=== PATIENT | male | born 1995 | race Caucasian/White ===

== ENCOUNTER 2024-04-28 11:55 | Observation (INO) | payer BC ==
[2024-04-28] MEDS ORDERED: DUONEB 0.5-3 MG/3 ml Neb IH ONE (12:22)
--- NOTE | 2024-04-28 12:24 | ERPHSYRPT ---
- History of Present Illness Time Seen by Provider: 04/28/24 12:10 Source: patient Exam Limitations: no limitations Patient Subjective Stated Complaint: Nurse practitioner stated "He came in for a cough for two days, we tested him and he was positive for flu a. His lungs sound junky and I cannot get his sats up past 90 so we put him on oxygen.". Pt stated "I have been coughing for the past two days and it seems to not be getting better." Triage Nursing Assessment: Pt presented alert and oriented X 3, skin pwd. Pt ambulates with an upright steady giat, able to speak in clear ufll sentences. PT tachypneic and coughing. Physician History: 28-year-old male presents to our ED from [facility] for evaluation of hypoxia. Patient reports he has been coughing for 2 to 3 days. Patient tested positive for the flu at [facility]. Patient was observed to be hypoxic into the low 90s. Patient was advised to come to our ED for further evaluation. Patient denies a history of pneumonia. He reports he is otherwise healthy. No history of PE DVT. No cardiac history per patient. Patient symptoms have been progressive over the past 2 days. No obvious sick contacts. Patient denies fever. Patient symptoms are moderate in intensity. Symptoms are worse with exertion. Symptoms improved with rest. Patient otherwise feels well. Patient voices no other complaints or concerns at this time. Portions of this note were created with voice recognition technology. There may be grammatical, spelling, punctuation or sound alike errors Timing/Duration: day(s) (3 days) Severity: moderate Modifying Factors: Improves With: nothing Associated Symptoms: denies symptoms Allergies/Adverse Reactions: latex Allergy (Intermediate, Verified 04/28/24 12:06) Rash amphetamine [From Adderall] Adverse Reaction (Unknown, Verified 04/28/24 12:06) unknown dextroamphetamine [From Adderall] Adverse Reaction (Unknown, Verified 04/28/24 12:06) unknown Home Medications: No Reportable Medications [No Reported Medications] 04/28/24 [History] Hx Tetanus, Diphtheria Vaccination/Date Given: No Hx Influenza Vaccination/Date Given: No Hx Pneumococcal Vaccination/Date Given: No Immunizations Up to Date: No Travel Risk - International Travel Have you traveled outside of the country in past 3 weeks: No - Emerging Infectious Disease Are you exhibiting symptoms associated with any current EIDs: Yes Symptoms: Cough: New Onset, Shortness of Breath - Review of Systems Constitutional: No Symptoms, No Fever, No Chills Eyes: No Symptoms Ears, Nose, & Throat: No Symptoms Respiratory: No Symptoms, No Cough, No Dyspnea Cardiac: No Symptoms, No Chest Pain, No Edema, No Syncope Abdominal/Gastrointestinal: No Symptoms, No Abdominal Pain, No Nausea, No Vomiting, No Diarrhea Genitourinary Symptoms: No Symptoms, No Dysuria Musculoskeletal: No Symptoms, No Back Pain, No Neck Pain Skin: No Symptoms, No Rash Neurological: No Symptoms, No Dizziness, No Focal Weakness, No Sensory Changes Psychological: No Symptoms Endocrine: No Symptoms Hematologic/Lymphatic: No Symptoms Immunological/Allergic: No Symptoms All Other Systems: Reviewed and Negative - Past Medical History Pertinent Past Medical History: No - Past Surgical History Past Surgical History: Yes Other Surgical History: left leg - Social History Smoking Status: Never smoker Exposure to second hand smoke: No Drug Use: none - Social Determinants of Health Will the patient participate in the screening: Declined to provide - Nursing Vital Signs Nursing Vital Signs: Initial Vital Signs Temperature 98.5 F 04/28/24 12:00 Pulse Rate 113 H 04/28/24 12:00 Respiratory Rate 26 H 04/28/24 12:00 Blood Pressure 134/91 04/28/24 12:00 O2 Sat by Pulse Oximetry 95 04/28/24 12:00 Pain Scale Pain Intensity 0 - Physical Exam General Appearance: no apparent distress, alert Eye Exam: PERRL/EOMI, eyes nml inspection Ears, Nose, Throat Exam: normal ENT inspection, moist mucous membranes Neck Exam: normal inspection, full range of motion Respiratory Exam: airway intact, diminished breath sounds, rhonchi, wheezing, No respiratory distress Cardiovascular Exam: regular rate/rhythm, normal heart sounds, normal peripheral pulses Gastrointestinal/Abdomen Exam: soft, normal bowel sounds, No tenderness, No mass Back Exam: normal inspection, normal range of motion, No CVA tenderness, No vertebral tenderness Extremity Exam: normal inspection, normal range of motion, pelvis stable Neurologic Exam: alert, oriented x 3, cooperative, normal mood/affect, sensation nml, No motor deficits Skin Exam: normal color, warm, dry, No rash Lymphatic Exam: No adenopathy SpO2 Interpretation: normal SpO2: 94 O2 Delivery: Room Air - Course Nursing assessment & vital signs reviewed: Yes EKG Interpreted by Me: RATE ([id number]), Sinus Tach, NORMAL AXIS, NORMAL INTERVALS, NORMAL QRS - CT Exams Chest CT Interpretation: Tele-radiologist Report (No identifiable PE. Fatty liver) Ordered Tests: Active Orders 24 hr Category Date Time Status Analysis Specialist STAT Care 04/28/24 12:18 Active EKG-ER Only STAT Care 04/28/24 12:17 Active IV Insertion STAT Care 04/28/24 12:17 Active Pulse Oximetry (ED) STAT Care 04/28/24 12:17 Active CHEST WITH CONTRAST [CT] Stat Exams 04/28/24 13:23 Completed BLOOD CULTURE Stat Lab 04/28/24 12:49 Received CBC W DIFF Stat Lab 04/28/24 12:39 Completed CMP Stat Lab 04/28/24 12:39 Completed D-DIMER QUANTITATIVE Stat Lab 04/28/24 12:39 Completed NT PRO BNPII Stat Lab 04/28/24 12:39 Completed TROPONIN Q4H Lab 04/28/24 12:39 Completed Respiratory Therapy Assessment DAILY RT 04/28/24 12:29 Active Transfer Order Routine Transfer 04/28/24 Ordered Medication Summary Discontinued Medications Generic Name Dose Route Start Last Admin Trade Name Freq PRN Reason Stop Dose Admin Albuterol/Ipratropium 3 ml 04/28/24 12:18 04/28/24 12:25 Ipratropium/Albuterol Sulfate 3 Ml Ampul.Neb IH 04/28/24 12:19 3 ml STAT ONE Administration Albuterol/Ipratropium Confirm 04/28/24 12:22 Ipratropium/Albuterol Sulfate 3 Ml Ampul.Neb Administered 04/28/24 12:23 Dose 3 ml IH .STK-MED ONE Methylprednisolone Sodium 0 mg 04/28/24 12:18 04/28/24 15:38 Succinate 125 mg/ Sterile IV 04/28/24 12:19 125 mg Water 2 ml STAT ONE Administration Sodium Chloride 1,000 mls @ 999 mls/hr 04/28/24 12:24 04/28/24 16:41 Sodium Chloride 0.9% 1000 Ml IV 04/28/24 13:24 Infused .Q1H1M STA Infusion Sodium Chloride Confirm 04/28/24 15:32 Sodium Chloride 0.9% 1000 Ml Administered 04/28/24 15:33 Dose 1,000 mls @ ud .ROUTE .STK-MED ONE Methylprednisolone Sodium Succinate Confirm 04/28/24 15:32 Methylprednis Sod Succ 125 Mg/2 Ml Vial Administered 04/28/24 15:33 Dose 125 mg .ROUTE .STK-MED ONE Oseltamivir Phosphate 75 mg 04/28/24 18:15 Oseltamivir 75 Mg Cap PO 04/28/24 18:16 STAT ONE Sterile Water Confirm 04/28/24 15:32 Water For Injection,Sterile 10 Ml Vial Administered 04/28/24 15:33 Dose 10 ml IJ .STK-MED ONE Lab/Rad Data: Laboratory Result Diagrams 04/28/24 12:39 04/28/24 12:39 Laboratory Results 04/28/24 04/28/24 04/28/24 Range/Units 12:39 12:39 12:39 WBC (4.23-9.07) x10^3/uL RBC (4.63-6.08) x10^6/uL Hgb (13.7-17.5) g/dL Hct (40.1-51.0) % MCV (79.0-92.2) fL MCH (25.7-32.2) pg MCHC (32.3-36.5) g/dL RDW (11.6-14.4) % Plt Count (163-337) x10^3/uL MPV (9.4-12.4) fL Gran % (34.0-67.9) % Immature Gran % (Auto) (0.001-0.429) % Nucleat RBC Rel Count (0.00-0.2) % Eos # (Auto) (0.04-0.54) x10^3/uL Immature Gran # (Auto) (0.001-0.031) x10^3u/L Absolute Lymphs (auto) (1.32-3.57) x10^3/uL Absolute Monos (auto) (0.30-0.82) x10^3/uL Absolute Nucleated RBC (0.00-0.012) x10^3u/L Lymphocytes % (21.8-53.1) % Monocytes % (5.3-12.2) % Eosinophils % (0.8-7.0) % Basophils % (0.2-1.2) % Absolute Granulocytes (1.78-5.38) x10^3/uL Basophils # (0.01-0.08) x10^3/uL D-Dimer 0.60 H (0.0-0.50) mg/L Sodium 135 (135-145) mmol/L Potassium 3.8 (3.5-5.1) mmol/L Chloride 100 (98-107) mmol/L Carbon Dioxide 25 (22-30) mmol/L Anion Gap 12.9 (5-15) MEQ/L BUN 21 H (9-20) mg/dL Creatinine 1.07 (0.66-1.25) mg/dL Estimated GFR 95.7 ML/MIN Glucose 114 H (74-106) mg/dL Calcium 8.9 (8.4-10.2) mg/dL Total Bilirubin 0.80 (0.2-1.3) mg/dL AST 45 (17-59) U/L ALT 45 (0-50) U/L Alkaline Phosphatase 66 (38-126) U/L Troponin I < 0.012 (0.000-0.033) ng/mL NT-Pro-B Natriuret Pep 50.3 (<300) pg/mL Serum Total Protein 7.3 (6.3-8.2) g/dL Albumin 4.6 (3.5-5.0) g/dL 04/28/24 Range/Units 12:39 WBC 6.6 (4.23-9.07) x10^3/uL RBC 5.31 (4.63-6.08) x10^6/uL Hgb 16.0 (13.7-17.5) g/dL Hct 47.1 (40.1-51.0) % MCV 88.7 (79.0-92.2) fL MCH 30.1 (25.7-32.2) pg MCHC 34.0 (32.3-36.5) g/dL RDW 13.2 (11.6-14.4) % Plt Count 163 (163-337) x10^3/uL MPV 10.5 (9.4-12.4) fL Gran % 70.4 H (34.0-67.9) % Immature Gran % (Auto) 0.6 H (0.001-0.429) % Nucleat RBC Rel Count 0.0 (0.00-0.2) % Eos # (Auto) 0.03 L (0.04-0.54) x10^3/uL Immature Gran # (Auto) 0.04 H (0.001-0.031) x10^3u/L Absolute Lymphs (auto) 1.18 L (1.32-3.57) x10^3/uL Absolute Monos (auto) 0.68 (0.30-0.82) x10^3/uL Absolute Nucleated RBC 0.00 (0.00-0.012) x10^3u/L Lymphocytes % 17.9 L (21.8-53.1) % Monocytes % 10.3 (5.3-12.2) % Eosinophils % 0.5 L (0.8-7.0) % Basophils % 0.3 (0.2-1.2) % Absolute Granulocytes 4.63 (1.78-5.38) x10^3/uL Basophils # 0.02 (0.01-0.08) x10^3/uL D-Dimer (0.0-0.50) mg/L Sodium (135-145) mmol/L Potassium (3.5-5.1) mmol/L Chloride (98-107) mmol/L Carbon Dioxide (22-30) mmol/L Anion Gap (5-15) MEQ/L BUN (9-20) mg/dL Creatinine (0.66-1.25) mg/dL Estimated GFR ML/MIN Glucose (74-106) mg/dL Calcium (8.4-10.2) mg/dL Total Bilirubin (0.2-1.3) mg/dL AST (17-59) U/L ALT (0-50) U/L Alkaline Phosphatase (38-126) U/L Troponin I (0.000-0.033) ng/mL NT-Pro-B Natriuret Pep (<300) pg/mL Serum Total Protein (6.3-8.2) g/dL Albumin (3.5-5.0) g/dL - Progress Progress: improved Progress Note: 28-year-old male presents to our ED as a referral from [facility] for evaluation of hypoxia. Patient is influenza A positive. Symptoms have been ongoing for about 2 to 3 days. Cough is dry nonproductive. Physical exam reveals coarse breath sounds diminished with scattered wheezing. Patient has a resting tachycardia of 110. D-dimer positive. CTA chest negative. No obvious pneumonia on imaging study. Patient treated with Solu-Medrol and breathing treatment. Symptoms improved somewhat but did not resolve. Patient observed in our ED. Ambulatory pulse oximetry revealed O2 sat decreasing down to 90 to 93% with a heart rate of 124. Patient was tachypneic and short of breath. The decision was made to admit patient for further evaluation and treatment. Plan of care discussed with patient. Patient agreed to admission to [facility] for further evaluation and treatment. Case discussed with Dr. Rivas who accepted admission to observation at 6:15 PM. Portions of this note were created with voice recognition technology. There may be grammatical, spelling, punctuation or sound alike errors Complexity of problem addresses moderate acute complicated no critical care time. Complexity of data reviewed and analyzed is extensive. Test ordered chest reviewed results analyzed and correlated clinically with history and physical exam. Management discussed with hospitalist who accepts admission to [facility]. Risk of complication and or risk of morbidity/mortality of patient management is high. Patient requires hospitalization for further evaluation and treatment. Vital stable. Time spent to admit patient approximately 15 minutes. Plan of care established for shared decision making. No social determinants of health present to impede follow-up. Portions of this note were created with voice recognition technology. There may be grammatical, spelling, punctuation or sound alike errors 04/28/24 18:19 04/28/24 18:20 Counseled pt/family regarding: lab results, diagnosis, need for follow-up, rad results - Departure Departure Disposition: Observation Clinical Impression: Influenza A, Hypoxia, Shortness of breath, Bronchitis Condition: Stable Critical Care Time: No Referrals: MILAD HESS NP [Primary Care Provider] - Follow up/PCP as directed Additional Instructions: Discharge/Care Plan LUPILLO WILLIS was seen on 04/28/24 in the Emergency Room. The patient was counseled regarding Diagnosis,Lab results, Imaging studies, need for follow up and when to return to the Emergency Room. Prescriptions given: Discharge Note I have spoken with the patient and/or caregivers. I have explained the patient's condition, diagnosis and treatment plan based on the information available to me at this time. I have answered the patient's and/or caregiver's questions and addressed any concerns. The patient and/or caregivers have as good understanding of the patient's diagnosis, condition and treatment plan as can be expected at this point. The vital signs have been stable. The patient's condition is stable and appropriate for discharge from the emergency department. The patient will pursue further outpatient evaluation with the primary care physician or other designated or consulting physician as outlined in the discharge instructions. The patient and/or caregivers are agreeable to this plan of care and follow-up instructions have been explained in detail. The patient and/or caregivers have received these instruction. The patient/and or caregivers are aware that any significant change in condition or worsening of symptoms should prompt an immediate return to this or the closest emergency department or call 911.
[2024-04-28] MEDS: DUONEB 0.5-3 MG/3 ml Neb IH ONE (12:25)
[2024-04-28 12:54] LABS: Absolute Neutrophil Ct (ANC) 4.63 x10^3/uL (1.78-5.38); BASOPHIL % 0.3 % (0.2-1.2); Basophil (Absolute #) 0.02 x10^3/uL (0.01-0.08); Eosinophil % 0.5 % (0.8-7.0); Eosinophil (Absolute #) 0.03 x10^3/uL (0.04-0.54); Hematocrit 47.1 % (40.1-51.0); IMMATURE GRAN # 0.04 x10^3u/L (0.001-0.031); IMMATURE GRAN % 0.6 % (0.001-0.429); Lymphocyte (Absolute #) 1.18 x10^3/uL (1.32-3.57); Lymphocytes % 17.9 % (21.8-53.1); Mean Cell Volume 88.7 fL (79.0-92.2); Mean Corpuscular Hemoglobin 30.1 pg (25.7-32.2); Mean Platelet Volume 10.5 fL (9.4-12.4); Monocyte (Absolute #) 0.68 x10^3/uL (0.30-0.82); Monocytes % 10.3 % (5.3-12.2); Neutrophil % 70.4 % (34.0-67.9); Platelet Count 163 x10^3/uL (163-337); Red Blood Count 5.31 x10^6/uL (4.63-6.08); Red Cell Distribution Width 13.2 % (11.6-14.4); White Blood Count 6.6 x10^3/uL (4.23-9.07)
[2024-04-28 13:17] LABS: ALBUMIN 4.6 g/dL (3.5-5.0); ANION GAP 12.9 MEQ/L (5-15); BILIRUBIN,TOTAL 0.8 mg/dL (0.2-1.3); Calcium 8.9 mg/dL (8.4-10.2); Creatinine 1 1.07 mg/dL (0.66-1.25); EST GLOMERULAR FILTRATION RATE 95.7 ML/MIN; NT PRO BNPII 50.3 pg/mL (<300); Potassium 3.8 mmol/L (3.5-5.1); Total Protein 7.3 g/dL (6.3-8.2)
[2024-04-28] MEDS ORDERED: solu-MEDROL ONE ×2 (15:32→21:27)
[2024-04-28] MEDS ORDERED: Sodium Chloride 0.9% 1000 ML 1,000 ML ONE (15:32)
[2024-04-28] MEDS ORDERED: Sterile H2O 10 ml IJ ONE ×2 (15:32→21:27)
[2024-04-28] MEDS: Sodium Chloride 0.9% 1000 ML 1,000 ML IV STA (15:36)
[2024-04-28] MEDS: solu-MEDROL 125 MG, Sterile H2O 10 ml 2 ML IV ONE (15:38)
--- NOTE | 2024-04-28 17:19 | XRAY ---
Indication: Short of breath. Elevated d-dimer. Positive influenza. Multiple contiguous axial images obtained through the chest using 100 cc Isovue 370 contrast and PE protocol. Comparison: None Poor opacification pulmonary arteries limits evaluation for pulmonary embolus. No obvious central pulmonary embolus. Heart not enlarged. Aorta is normal in course and caliber. No pathologic mediastinal/hilar lymphadenopathy. Lungs demonstrates mild bibasilar dependent atelectasis. No suspicious pulmonary mass/nodule, infiltrate, or effusion. Bony thorax intact. Limited upper abdomen demonstrates fatty liver. Impression: 1. Pulmonary embolus evaluation limited due to poor contrast opacification. No obvious central pulmonary embolus. 2. Incidental bibasilar dependent atelectasis and fatty liver. 3. Remaining CT chest with contrast exam is negative.
[2024-04-28] MEDS ORDERED: Tamiflu 75MG Capsule PO ONE (18:25)
[2024-04-28] MEDS: Tamiflu 75MG Capsule PO ONE (18:26)
[2024-04-28] MEDS ORDERED: Zofran 4 MG/2 ML VIAL IV PRN (19:16)
[2024-04-28] MEDS ORDERED: TYLENOL 325 MG PO PRN (19:16)
--- NOTE | 2024-04-28 19:24 | PCM.HP ---
History of Present Illness - Chief Complaint Chief Complaint: Hypoxia, influenza A Date: 04/28/24 History of Present Illness: is a 28 year old male with a history of childhood asthma (but not requiring inhalers for several years) who was transferred to the [place] ED from [facility] for evaluation of hypoxia. The patient reported he had been coughing for 2 to 3 days. Patient tested positive for the flu at [facility]. Patient was observed to be hypoxic into the low 90s at the urgent care. He reports he is otherwise healthy. No history of PE DVT. No cardiac history per patient. Patient symptoms have been progressive over the past 2 days. No obvi ous sick contacts. Patient denies fever. Patient symptoms are moderate in intensity. Symptoms are worse with exertion. Symptoms improved with rest. Patient otherwise feels well. Patient voices no other complaints or concerns at this time. After treatment initiation in the ED, the patient's dyspnea had improved but the hypoxia with ambulation was persistent, so admission was requested. - Review of Systems Constitutional: No Symptoms Eyes: No Symptoms Ears, Nose, & Throat: No Symptoms Respiratory: Cough, Short Of Breath, Wheezing Cardiac: No Symptoms Abdominal/Gastrointestinal: No Symptoms Genitourinary Symptoms: No Symptoms Musculoskeletal: No Symptoms Skin: No Symptoms Neurological: No Symptoms Psychological: No Symptoms Endocrine: No Symptoms Hematologic/Lymphatic: No Symptoms Immunological/Allergic: No Symptoms All Other Systems: Reviewed and Negative Medications & Allergies Home Medications: Home Medication List No Reportable Medications [No Reported Medications] 04/28/24 [History Confirmed 04/28/24] Allergies/Adverse Reactions: Allergies Allergy/AdvReac Type Severity Reaction Status Date / Time latex Allergy Intermediate Rash Verified 04/28/24 12:06 amphetamine [From Adderall] AdvReac Unknown unknown Verified 04/28/24 12:06 dextroamphetamine AdvReac Unknown unknown Verified 04/28/24 12:06 [From Adderall] - Past Medical History Past Medical History: No - Past Surgical History Past Surgical History: Yes Other Surgical History: left leg Significant Family History: no pertinent family hx Family History: No family history of hereditary pulmonary disease is noted. - Social History Smoking Status: Never smoker Exposure to second hand smoke: No Alcohol: None Drug Use: none - Social Determinants of Health Will the patient participate in the screening: Declined to provide - Physical Exam Vital Signs: Vital Signs - 24 hr Temp Pulse Resp BP BP Pulse Ox 04/28/24 18:23 94 L 04/28/24 18:16 107 H 16 128/99 93 L 04/28/24 18:06 123/75 92 L 04/28/24 18:01 96 04/28/24 17:30 108 H 19 123/75 92 L 04/28/24 17:00 109 H 18 137/85 95 04/28/24 15:45 104/88 04/28/24 15:30 127/92 93 L 04/28/24 15:15 110 H 19 125/91 04/28/24 15:00 23 138/92 96 04/28/24 14:46 16 164/114 97 04/28/24 14:30 14 150/101 98 04/28/24 14:15 17 139/97 96 04/28/24 14:12 20 126/93 98 04/28/24 14:10 111 H 18 98 04/28/24 14:07 106 H 16 96 04/28/24 13:45 155/90 04/28/24 13:15 13 131/88 04/28/24 13:00 104 H 26 H 128/87 93 L 04/28/24 12:50 109 H 21 93 L 04/28/24 12:40 108 H 24 138/90 95 04/28/24 12:35 103 H 22 04/28/24 12:29 104 H 22 94 L 04/28/24 12:15 142/104 04/28/24 12:00 98.5 F 110 H 19 134/91 134/91 95 General Appearance: no apparent distress, alert Neurologic Exam: alert, oriented x 3, cooperative, 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 as tested, normal mood/affect, nml cerebellar function Eye Exam: PERRL/EOMI, eyes nml inspection Ears, Nose, Throat Exam: normal ENT inspection Neck Exam: normal inspection, non-tender, supple, full range of motion Respiratory Exam: diminished breath sounds, wheezing Cardiovascular Exam: regular rate/rhythm, normal heart sounds Gastrointestinal/Abdomen Exam: soft, normal bowel sounds Back Exam: normal range of motion Extremity Exam: normal inspection, normal range of motion Skin Exam: normal color, warm Results - Labs Lab/Micro Results: Lab Results-Last 24 Hours 04/28/24 04/28/24 04/28/24 Range/Units 12:39 12:39 12:39 WBC 6.6 (4.23-9.07) x10^3/uL RBC 5.31 (4.63-6.08) x10^6/uL Hgb 16.0 (13.7-17.5) g/dL Hct 47.1 (40.1-51.0) % MCV 88.7 (79.0-92.2) fL MCH 30.1 (25.7-32.2) pg MCHC 34.0 (32.3-36.5) g/dL RDW 13.2 (11.6-14.4) % Plt Count 163 (163-337) x10^3/uL MPV 10.5 (9.4-12.4) fL Gran % 70.4 H (34.0-67.9) % Immature Gran % (Auto) 0.6 H (0.001-0.429) % Nucleat RBC Rel Count 0.0 (0.00-0.2) % Eos # (Auto) 0.03 L (0.04-0.54) x10^3/uL Immature Gran # (Auto) 0.04 H (0.001-0.031) x10^3u/L Absolute Lymphs (auto) 1.18 L (1.32-3.57) x10^3/uL Absolute Monos (auto) 0.68 (0.30-0.82) x10^3/uL Absolute Nucleated RBC 0.00 (0.00-0.012) x10^3u/L Lymphocytes % 17.9 L (21.8-53.1) % Monocytes % 10.3 (5.3-12.2) % Eosinophils % 0.5 L (0.8-7.0) % Basophils % 0.3 (0.2-1.2) % Absolute Granulocytes 4.63 (1.78-5.38) x10^3/uL Basophils # 0.02 (0.01-0.08) x10^3/uL D-Dimer 0.60 H (0.0-0.50) mg/L Sodium 135 (135-145) mmol/L Potassium 3.8 (3.5-5.1) mmol/L Chloride 100 (98-107) mmol/L Carbon Dioxide 25 (22-30) mmol/L Anion Gap 12.9 (5-15) MEQ/L BUN 21 H (9-20) mg/dL Creatinine 1.07 (0.66-1.25) mg/dL Estimated GFR 95.7 ML/MIN Glucose 114 H (74-106) mg/dL Calcium 8.9 (8.4-10.2) mg/dL Total Bilirubin 0.80 (0.2-1.3) mg/dL AST 45 (17-59) U/L ALT 45 (0-50) U/L Alkaline Phosphatase 66 (38-126) U/L Troponin I (0.000-0.033) ng/mL NT-Pro-B Natriuret Pep 50.3 (<300) pg/mL Serum Total Protein 7.3 (6.3-8.2) g/dL Albumin 4.6 (3.5-5.0) g/dL 04/28/24 Range/Units 12:39 WBC (4.23-9.07) x10^3/uL RBC (4.63-6.08) x10^6/uL Hgb (13.7-17.5) g/dL Hct (40.1-51.0) % MCV (79.0-92.2) fL MCH (25.7-32.2) pg MCHC (32.3-36.5) g/dL RDW (11.6-14.4) % Plt Count (163-337) x10^3/uL MPV (9.4-12.4) fL Gran % (34.0-67.9) % Immature Gran % (Auto) (0.001-0.429) % Nucleat RBC Rel Count (0.00-0.2) % Eos # (Auto) (0.04-0.54) x10^3/uL Immature Gran # (Auto) (0.001-0.031) x10^3u/L Absolute Lymphs (auto) (1.32-3.57) x10^3/uL Absolute Monos (auto) (0.30-0.82) x10^3/uL Absolute Nucleated RBC (0.00-0.012) x10^3u/L Lymphocytes % (21.8-53.1) % Monocytes % (5.3-12.2) % Eosinophils % (0.8-7.0) % Basophils % (0.2-1.2) % Absolute Granulocytes (1.78-5.38) x10^3/uL Basophils # (0.01-0.08) x10^3/uL D-Dimer (0.0-0.50) mg/L Sodium (135-145) mmol/L Potassium (3.5-5.1) mmol/L Chloride (98-107) mmol/L Carbon Dioxide (22-30) mmol/L Anion Gap (5-15) MEQ/L BUN (9-20) mg/dL Creatinine (0.66-1.25) mg/dL Estimated GFR ML/MIN Glucose (74-106) mg/dL Calcium (8.4-10.2) mg/dL Total Bilirubin (0.2-1.3) mg/dL AST (17-59) U/L ALT (0-50) U/L Alkaline Phosphatase (38-126) U/L Troponin I < 0.012 (0.000-0.033) ng/mL NT-Pro-B Natriuret Pep (<300) pg/mL Serum Total Protein (6.3-8.2) g/dL Albumin (3.5-5.0) g/dL - Radiology Impressions Radiology Exams & Impressions: Radiology Procedures Category Date Time Status CHEST WITH CONTRAST [CT] Stat Exams 04/28/24 13:23 Completed Assessment/Plan (1) Influenza A Current Visit: Yes Status: Acute Assessment & Plan: Initiated Tamiflu. Isolation. Code(s): J10.1 - FLU DUE TO OTH IDENT INFLUENZA VIRUS W OTH RESP MANIFEST (2) Hypoxia Current Visit: Yes Status: Acute Assessment & Plan: Acute bronchospasm and hypoxia likely triggered by influenza, but the patient does has a history of childhood asthma. Nebs, IV steroids. Wean O2. PT eval in AM. Likely will benefit from PFTs in 1 month as outpatient when recovered. Will need a MDI Rx at discharge. Code(s): R09.02 - HYPOXEMIA (3) Shortness of breath Current Visit: Yes Status: Acute Assessment & Plan: As above, will treat with nebs and steroids,. Code(s): R06.02 - SHORTNESS OF BREATH (4) Bronchitis Current Visit: Yes Status: Acute Assessment & Plan: No evidence of purulence of infiltrate on imaging. No plan to treat with antibiotics at this time. Code(s): J40 - BRONCHITIS, NOT SPECIFIED ACUTE OR CHRONIC Telemedicine Encounter - Telemedicine Encounter Telemedicine Encounter: "The entirety of this encounter was performed via Telemedicine" This visit was performed using real-time audio and video connection between my location and thepatients locationwith the assistance of a surrogateat the patients location. Written or verbal consent was obtained from the patient/guardian to perform this visit [facility] technology. Any patient questions regarding the telemedicine interaction were answered.
[2024-04-28] MEDS: TYLENOL 325 MG PO PRN (19:50)
[2024-04-28] MEDS: Tamiflu 75MG Capsule PO SCH (21:37)
[2024-04-28] MEDS: solu-MEDROL 40 MG, Sterile H2O 10 ml 1 ML IV SCH (21:37)
[2024-04-28] MEDS: PROVENTIL 2.5 MG/3 ML NEB IH SCH (23:06)
[2024-04-29] MEDS ORDERED: DUONEB 0.5-3 MG/3 ml Neb IH ONE (02:52)
[2024-04-29 05:23] LABS: Absolute Neutrophil Ct (ANC) 3.73 x10^3/uL (1.78-5.38); Basophil (Absolute #) 0 x10^3/uL (0.01-0.08); Eosinophil (Absolute #) 0 x10^3/uL (0.04-0.54); Hematocrit 47.5 % (40.1-51.0); IMMATURE GRAN # 0.02 x10^3u/L (0.001-0.031); IMMATURE GRAN % 0.4 % (0.001-0.429); Lymphocyte (Absolute #) 0.67 x10^3/uL (1.32-3.57); Lymphocytes % 14.6 % (21.8-53.1); Mean Cell Volume 90.3 fL (79.0-92.2); Mean Corpuscular Hemoglobin 30.4 pg (25.7-32.2); Mean Corpuscular Hgb Concent. 33.7 g/dL (32.3-36.5); Mean Platelet Volume 10.6 fL (9.4-12.4); Monocyte (Absolute #) 0.16 x10^3/uL (0.30-0.82); Monocytes % 3.5 % (5.3-12.2); Neutrophil % 81.5 % (34.0-67.9); Platelet Count 150 x10^3/uL (163-337); Red Blood Count 5.26 x10^6/uL (4.63-6.08); Red Cell Distribution Width 13.2 % (11.6-14.4); White Blood Count 4.6 x10^3/uL (4.23-9.07)
[2024-04-29 06:17] LABS: ANION GAP 13.4 MEQ/L (5-15); Calcium 8.6 mg/dL (8.4-10.2); Creatinine 1 0.98 mg/dL (0.66-1.25); EST GLOMERULAR FILTRATION RATE 106.4 ML/MIN; Potassium 4.2 mmol/L (3.5-5.1)
[2024-04-29] MEDS: ENOXAPARIN SODIUM SQ SCH (09:38)
--- NOTE | 2024-04-29 11:50 | PCM.DS ---
Discharge Summary Date of Admission: 04/28/24 18:36 Date of Discharge: 04/29/24 Admitting Physician: AVILA ALCAZAR MD Primary Care Provider: MILAD HESS Allergies Allergies latex Allergy (Intermediate, Verified 04/28/24 12:06) Rash amphetamine [From Adderall] Adverse Reaction (Unknown, Verified 04/28/24 12:06) unknown dextroamphetamine [From Adderall] Adverse Reaction (Unknown, Verified 04/28/24 12:06) unknown Hospital Summary - Hospital Course Hospital Course: 04/29/24 is a 28 year old male with a history of childhood asthma (but not requiring inhalers for several years) who was transferred to the [place] ED from [facility] for evaluation of hypoxia on 04/28/24. The patient reported he had been coughing for 2 to 3 days. Patient tested positive for the flu A at [facility]. Patient was observed to be hypoxic into the low 90s at the urgent care. He reports he is otherwise healthy. No history of PE DVT. No cardiac h istory per patient. Patient symptoms have been progressive over the past 2 days. No obvious sick contacts. Patient denies fever. Patient symptoms are moderate in intensity. Symptoms are worse with exertion. Symptoms improved with rest. Patient otherwise feels well. Patient voices no other complaints or concerns at this time. After treatment initiation in the ED, the patient's dyspnea had improved but the hypoxia with ambulation was persistent, so admission was requested. He states he is feeling better today and ready to d/c. Lung sounds are clear, SOB resolved, RA 92%. Procal is elevated so will d/c with po antibiotic. Will also provide inhaler and steroids. Pt will need to f/u with PCP OP. - Vitals & Intake/Output Vital Signs: Vital Signs Temperature 97.6 F 04/29/24 08:00 Pulse Rate 96 H 04/29/24 10:49 Respiratory Rate 16 04/29/24 10:49 Blood Pressure 126/68 04/29/24 08:00 O2 Sat by Pulse Oximetry 92 L 04/29/24 10:49 Intake & Output: Intake & Output 04/26/24 04/27/24 04/28/24 04/29/24 11:59 11:59 11:59 11:59 Intake Total 840 Balance 840 Weight 126 kg - Lab Result Diagrams: 04/29/24 05:15 04/29/24 05:15 Lab Results-Last 24 Hrs: Lab Results-Last 24 Hours 04/28/24 04/28/24 04/28/24 Range/Units 12:39 12:39 12:39 WBC 6.6 (4.23-9.07) x10^3/uL RBC 5.31 (4.63-6.08) x10^6/uL Hgb 16.0 (13.7-17.5) g/dL Hct 47.1 (40.1-51.0) % MCV 88.7 (79.0-92.2) fL MCH 30.1 (25.7-32.2) pg MCHC 34.0 (32.3-36.5) g/dL RDW 13.2 (11.6-14.4) % Plt Count 163 (163-337) x10^3/uL MPV 10.5 (9.4-12.4) fL Gran % 70.4 H (34.0-67.9) % Immature Gran % (Auto) 0.6 H (0.001-0.429) % Nucleat RBC Rel Count 0.0 (0.00-0.2) % Eos # (Auto) 0.03 L (0.04-0.54) x10^3/uL Immature Gran # (Auto) 0.04 H (0.001-0.031) x10^3u/L Absolute Lymphs (auto) 1.18 L (1.32-3.57) x10^3/uL Absolute Monos (auto) 0.68 (0.30-0.82) x10^3/uL Absolute Nucleated RBC 0.00 (0.00-0.012) x10^3u/L Lymphocytes % 17.9 L (21.8-53.1) % Monocytes % 10.3 (5.3-12.2) % Eosinophils % 0.5 L (0.8-7.0) % Basophils % 0.3 (0.2-1.2) % Absolute Granulocytes 4.63 (1.78-5.38) x10^3/uL Basophils # 0.02 (0.01-0.08) x10^3/uL D-Dimer 0.60 H (0.0-0.50) mg/L Sodium 135 (135-145) mmol/L Potassium 3.8 (3.5-5.1) mmol/L Chloride 100 (98-107) mmol/L Carbon Dioxide 25 (22-30) mmol/L Anion Gap 12.9 (5-15) MEQ/L BUN 21 H (9-20) mg/dL Creatinine 1.07 (0.66-1.25) mg/dL Estimated GFR 95.7 ML/MIN Glucose 114 H (74-106) mg/dL Calcium 8.9 (8.4-10.2) mg/dL Total Bilirubin 0.80 (0.2-1.3) mg/dL AST 45 (17-59) U/L ALT 45 (0-50) U/L Alkaline Phosphatase 66 (38-126) U/L Troponin I (0.000-0.033) ng/mL NT-Pro-B Natriuret Pep 50.3 (<300) pg/mL Serum Total Protein 7.3 (6.3-8.2) g/dL Albumin 4.6 (3.5-5.0) g/dL Procalcitonin (0.030-0.080) ng/mL 04/28/24 04/29/24 04/29/24 Range/Units 12:39 05:15 05:15 WBC 4.6 (4.23-9.07) x10^3/uL RBC 5.26 (4.63-6.08) x10^6/uL Hgb 16.0 (13.7-17.5) g/dL Hct 47.5 (40.1-51.0) % MCV 90.3 (79.0-92.2) fL MCH 30.4 (25.7-32.2) pg MCHC 33.7 (32.3-36.5) g/dL RDW 13.2 (11.6-14.4) % Plt Count 150 L (163-337) x10^3/uL MPV 10.6 (9.4-12.4) fL Gran % 81.5 H (34.0-67.9) % Immature Gran % (Auto) 0.4 (0.001-0.429) % Nucleat RBC Rel Count 0.0 (0.00-0.2) % Eos # (Auto) 0 L (0.04-0.54) x10^3/uL Immature Gran # (Auto) 0.02 (0.001-0.031) x10^3u/L Absolute Lymphs (auto) 0.67 L (1.32-3.57) x10^3/uL Absolute Monos (auto) 0.16 L (0.30-0.82) x10^3/uL Absolute Nucleated RBC 0.00 (0.00-0.012) x10^3u/L Lymphocytes % 14.6 L (21.8-53.1) % Monocytes % 3.5 L (5.3-12.2) % Eosinophils % 0.0 L (0.8-7.0) % Basophils % 0.0 L (0.2-1.2) % Absolute Granulocytes 3.73 (1.78-5.38) x10^3/uL Basophils # 0 L (0.01-0.08) x10^3/uL D-Dimer (0.0-0.50) mg/L Sodium 137 (135-145) mmol/L Potassium 4.2 (3.5-5.1) mmol/L Chloride 100 (98-107) mmol/L Carbon Dioxide 28 (22-30) mmol/L Anion Gap 13.4 (5-15) MEQ/L BUN 21 H (9-20) mg/dL Creatinine 0.98 (0.66-1.25) mg/dL Estimated GFR 106.4 ML/MIN Glucose 172 H (74-106) mg/dL Calcium 8.6 (8.4-10.2) mg/dL Total Bilirubin (0.2-1.3) mg/dL AST (17-59) U/L ALT (0-50) U/L Alkaline Phosphatase (38-126) U/L Troponin I < 0.012 (0.000-0.033) ng/mL NT-Pro-B Natriuret Pep (<300) pg/mL Serum Total Protein (6.3-8.2) g/dL Albumin (3.5-5.0) g/dL Procalcitonin (0.030-0.080) ng/mL 04/29/24 Range/Units 05:15 WBC (4.23-9.07) x10^3/uL RBC (4.63-6.08) x10^6/uL Hgb (13.7-17.5) g/dL Hct (40.1-51.0) % MCV (79.0-92.2) fL MCH (25.7-32.2) pg MCHC (32.3-36.5) g/dL RDW (11.6-14.4) % Plt Count (163-337) x10^3/uL MPV (9.4-12.4) fL Gran % (34.0-67.9) % Immature Gran % (Auto) (0.001-0.429) % Nucleat RBC Rel Count (0.00-0.2) % Eos # (Auto) (0.04-0.54) x10^3/uL Immature Gran # (Auto) (0.001-0.031) x10^3u/L Absolute Lymphs (auto) (1.32-3.57) x10^3/uL Absolute Monos (auto) (0.30-0.82) x10^3/uL Absolute Nucleated RBC (0.00-0.012) x10^3u/L Lymphocytes % (21.8-53.1) % Monocytes % (5.3-12.2) % Eosinophils % (0.8-7.0) % Basophils % (0.2-1.2) % Absolute Granulocytes (1.78-5.38) x10^3/uL Basophils # (0.01-0.08) x10^3/uL D-Dimer (0.0-0.50) mg/L Sodium (135-145) mmol/L Potassium (3.5-5.1) mmol/L Chloride (98-107) mmol/L Carbon Dioxide (22-30) mmol/L Anion Gap (5-15) MEQ/L BUN (9-20) mg/dL Creatinine (0.66-1.25) mg/dL Estimated GFR ML/MIN Glucose (74-106) mg/dL Calcium (8.4-10.2) mg/dL Total Bilirubin (0.2-1.3) mg/dL AST (17-59) U/L ALT (0-50) U/L Alkaline Phosphatase (38-126) U/L Troponin I (0.000-0.033) ng/mL NT-Pro-B Natriuret Pep (<300) pg/mL Serum Total Protein (6.3-8.2) g/dL Albumin (3.5-5.0) g/dL Procalcitonin 0.104 H (0.030-0.080) ng/mL - Radiology Exams Ordered Rad Exams-Entire Visit: Radiology Procedures Category Date Time Status CHEST WITH CONTRAST [CT] Stat Exams 04/28/24 13:23 Completed - Procedures and Test Procedures and Tests throughout Hospitalization: Therapy Orders & Screens 04/28/24 12:29 Respiratory Therapy Assessment DAILY Comment: 04/28/24 21:04 Respiratory Therapy Assessment DAILY Comment: Diagnosis: HYPOXIA, FLU A, BRONCHITIS Discharge Exam General Appearance: no apparent distress, alert, obese Neurologic Exam: alert, oriented x 3, cooperative, normal mood/affect, nml cerebellar function, sensation nml, No motor deficits Eye Exam: PERRL, EOMI, eyes nml inspection Ears, Nose, Throat Exam: normal ENT inspection, pharynx normal, moist mucous membranes Neck Exam: normal inspection, non-tender, supple, full range of motion Respiratory Exam: normal breath sounds, lungs clear, No respiratory distress Cardiovascular Exam: regular rate/rhythm, normal heart sounds Gastrointestinal/Abdomen Exam: soft, No tenderness, No mass Male Genitalia Exam: deferred Rectal Exam: deferred Back Exam: normal inspection, normal range of motion, No CVA tenderness, No vertebral tenderness Extremity Exam: normal inspection, normal range of motion Skin Exam: normal color, warm, dry Final Diagnosis/Problem List - Final Discharge Diagnosis/Problem (1) Pneumonia Current Visit: Yes Status: Acute Assessment & Plan: - CXR: Impression: 1. Pulmonary embolus evaluation limited due to poor contrast opacification. No obvious central pulmonary embolus. 2. Incidental bibasilar dependent atelectasis and fatty liver. 3. Remaining CT chest with contrast exam is negative. - Procal 0.104 - Doxycycline 100mg BID x5 days OP - cont steriods, albuterol inhaler - RA 92% - F/u with PCP Code(s): J18.9 - PNEUMONIA, UNSPECIFIED ORGANISM (2) Influenza A Current Visit: Yes Status: Acute Assessment & Plan: - + test - tamiflu - RA 92% Code(s): J10.1 - FLU DUE TO OTH IDENT INFLUENZA VIRUS W OTH RESP MANIFEST (3) Bronchitis Current Visit: Yes Status: Acute Assessment & Plan: - stersheila capone - tele Code(s): J40 - BRONCHITIS, NOT SPECIFIED ACUTE OR CHRONIC (4) Hypoxia Current Visit: Yes Status: Resolved Assessment & Plan: - resolved Code(s): R09.02 - HYPOXEMIA (5) Fatty liver Current Visit: Yes Status: Acute Assessment & Plan: - as seen on chest CT - F/u with PCP - education provided Code(s): K76.0 - FATTY (CHANGE OF) LIVER, NOT ELSEWHERE CLASSIFIED (6) Morbid obesity Current Visit: Yes Status: Chronic Assessment & Plan: - advised diet and exercise control Code(s): E66.01 - MORBID (SEVERE) OBESITY DUE TO EXCESS CALORIES - Discharge Discharge Date: 04/29/24 Disposition: Home, Self-Care Condition: Stable Prescriptions: New Oseltamivir 75 mg [Tamiflu 75MG Capsule] 75 mg PO BID 5 Days #10 cap Instructions: Oseltamivir, Flu in adults - Discharge instructions Follow up with: MILAD HESS NP [Primary Care Provider] - 05/07/24 1:15 pm
[2024-04-29 12:27] VITALS: BP 130/65; PULSE 110; RESP 20; TEMP 99.2; O2SAT 95
[2024-04-29] MEDS: Vibramycin 100 MG PO ONE (14:09)
[2024-04-29] MEDS ORDERED: Vibramycin 100 MG PO SCH (22:00)
== END 2024-04-29 15:04 | disposition home or self-care (01) ==
LOC: ED 11:55 → MED SURG 18:36 → UNDOADMOB 18:36
PROVIDERS: ADMIT Internal Medicine; ATTEND Internal Medicine
DX: J18.9 Pneumonia, unspecified organism (principal); J10.1 Influenza due to other identified influenza virus with other respiratory manifestations; J40 Bronchitis, not specified as acute or chronic; R09.02 Hypoxemia; K76.0 Fatty (change of) liver, not elsewhere classified; E66.01 Morbid (severe) obesity due to excess calories
CPT/HCPCS: 36415; 71260; 80048; 80053; 83880; 84145; 84484; 85025; 85379; 87040; 93005; 93041; 93268; 94640; 94760; 96360; 96374; 99285; J2919; J7609; Q3014; A9270-GY; G0378